=== PATIENT | male | born 1995 | race Caucasian/White ===

== ENCOUNTER 2024-05-06 09:55 | Outpatient (CLI) | payer OTHER, SELFPAY | END 2024-05-06 09:56 | disposition home or self-care (01) | LOC: FRMREF 09:57 | PROVIDERS: Visit Provider Nurse Practitioner Family | DX: Z00.00 Encounter for general adult medical examination without abnormal findings (principal); Z13.6 Encounter for screening for cardiovascular disorders | CPT/HCPCS: 80061 ==